=== PATIENT | male | born 1960 | race African-American/Black ===

== ENCOUNTER 2021-08-28 21:23 | Emergency (ER) | payer SELFPAY ==
[~2021-08-28] VITALS: Ht 182.9 cm; Wt 70.3 kg
--- NOTE | 2021-08-28 22:11 | NUR ---
CALLED FOR TRIAGE, NOT IN WAITING ROOM.
[2021-08-29 00:19] VITALS: BP 111/64
== END 2021-08-29 00:25 | disposition home or self-care (01) ==
LOC: ER 21:26
DX: Z02.89 Encounter for other administrative examinations (principal); Z59.00 Homelessness unspecified